=== PATIENT | female | born 1935 | race Two or more races ===

== ENCOUNTER 2017-02-24 09:35 | Outpatient (CLI) | payer OTHER ==
[~2017-02-24 09:35] MED LIST: AMBIEN10 MG; ATIVAN1 MG; CALTRATE 600600 MG; DIOVAN160 M1; KETO10TA2 PO; NEURONTIN300 MG; PRILOSEC20 MG; ULTRACET PO; ZOCOR20 MG; ZOLOFT25 MG
== END 2017-02-24 13:36 | disposition home or self-care (01) ==
LOC: MAMO-SONO 09:35
DX: C50.512 Malignant neoplasm of lower-outer quadrant of left female breast (principal)

== ENCOUNTER 2017-02-24 09:37 | Outpatient (CLI) | payer OTHER | END 2017-02-24 09:38 | disposition home or self-care (01) | LOC: LAB 09:37 | DX: I74.5 Embolism and thrombosis of iliac artery (principal) ==

== ENCOUNTER 2017-02-24 09:59 | Outpatient (CLI) | payer OTHER | END 2017-02-24 10:30 | disposition home or self-care (01) | LOC: NUCLEAR 09:59 | DX: I11.9 Hypertensive heart disease without heart failure (principal); I50.22 Chronic systolic (congestive) heart failure; I50.40 Unspecified combined systolic (congestive) and diastolic (congestive) heart failure ==

== ENCOUNTER 2017-02-24 10:07 | Outpatient (CLI) | payer OTHER | END 2017-02-24 13:36 | disposition home or self-care (01) | LOC: RAD 10:07 | DX: I11.9 Hypertensive heart disease without heart failure (principal) ==

== ENCOUNTER 2018-05-10 09:56 | Outpatient (CLI) | payer OTHER | END 2018-05-10 10:30 | disposition home or self-care (01) | LOC: NUCLEAR 09:56 | DX: M81.0 Age-related osteoporosis without current pathological fracture (principal) ==

== ENCOUNTER 2018-10-20 08:41 | Emergency (ER) | payer OTHER ==
[~2018-10-20] VITALS: Ht 152.4 cm; Wt 90.7 kg
[2018-10-20] MEDS ORDERED: DICLOFENAC SODI75 MG PO (10:49)
== END 2018-10-20 10:57 | disposition home or self-care (01) ==
LOC: ER 08:41
DX: M54.5 Low back pain (principal)

== ENCOUNTER 2019-03-21 15:01 | Emergency (ER) | payer OTHER ==
[~2019-03-21] VITALS: Ht 157.5 cm; Wt 95.3 kg
[~2019-03-21 15:01] MED LIST changes: +DICLOFENAC SODI75 MG PO
[2019-03-21] MEDS ORDERED: RESTORIL15 M1 PO (15:25)
[2019-03-21] MEDS ORDERED: HYZAAR 50-12.51 EACH PO (15:25)
[2019-03-21] MEDS ORDERED: DAFLONEX-XL 11300 MG PO (15:26)
[2019-03-21] MEDS ORDERED: APRESOLINE 10MG10 MG PO (15:26)
[2019-03-21] MEDS ORDERED: MICROZIDE12.5 MG PO (15:27)
[2019-03-21] MEDS ORDERED: POTASSIUM CHLOR8 MEQ PO (18:50)
[2019-03-21] MEDS ORDERED: NEURONTIN300 MG PO (18:53)
== END 2019-03-21 20:21 | disposition home or self-care (01) ==
LOC: ER 15:01
DX: M25.562 Pain in left knee (principal)

== ENCOUNTER 2021-05-10 08:48 | Outpatient (CLI) | payer OTHER ==
[~2021-05-10 08:48] MED LIST changes: +APRESOLINE 10MG10 MG PO; +DAFLONEX-XL 11300 MG PO; +HYZAAR 50-12.51 EACH PO; +MICROZIDE12.5 MG PO; +NEURONTIN300 MG PO; +POTASSIUM CHLOR8 MEQ PO; +RESTORIL15 M1 PO
== END 2021-05-10 08:59 | disposition home or self-care (01) ==
LOC: EKG 08:48
DX: I11.0 Hypertensive heart disease with heart failure (principal); I50.9 Heart failure, unspecified

== ENCOUNTER 2023-04-15 15:14 | Emergency (ER) | payer OTHER ==
[~2023-04-15] VITALS: Ht 157.5 cm; Wt 86.2 kg
[2023-04-15] MEDS ORDERED: 0.9 % SODIUM CHLORIDE 1,000 ML IV SCH (17:00)
[2023-04-15 17:30] LABS: HEMATOCRIT 40.1 % (36.0-45.00); HEMOGLOBIN 13.5 g/dL (12.0-15.00); MEAN CELL VOLUME 88.4 fL (80.00-100.00); MEAN CORPUSCULAR HEMOGLOBIN 29.8 pg (27.00-32.0); MEAN CORPUSCULAR HGB CONC 33.7 g/dl (32.0-36.0); PLATELET COUNT 196 K/uL (150-450); RED BLOOD COUNT 4.54 M/uL (4.00-6.00); RED CELL DISTRIBUTION WIDTH 14.3 % (11.5-14.5)
[2023-04-15 18:03] LABS: ALBUMIN 3.5 gm/dL (3.4-5.0); BILIRUBIN TOTAL 0.64 mg/dL (0.3-1.2); CALCIUM 10.2 mg/dL (8.5-10.1); CREATININE SERUM 0.88 mg/dL (0.55-1.02); GFR 60.93; GLOBULINA 2.7 G/DL (2.4-3.5); POTASSIUM 4.39 mEq/L (3.5-5.1); TOTAL PROTEIN 6.2 gm/dL (6.4-8.2)
[2023-04-15 18:06] LABS: URINE APPEARANCE Clear; URINE BILIRRUBIN Negative (NEGATIVE); URINE BLOOD Negative; URINE COLOR Yellow; URINE GLUCOSE Negative (NEGATIVE); URINE LEUKOCYTE Negative; URINE NITRATE Negative; URINE PROTEIN Negative (NEGATIVE)
[2023-04-15 18:07] LABS: URINE EPITHELIAL CELLS 7.7 uL (0.0-38.8); URINE RBC 4.8 uL (0.0-20.8); URINE WBC 4.9 uL (0.0-23.2)
== END 2023-04-15 20:11 | disposition home or self-care (01) ==
LOC: ER 15:14
PROVIDERS: General Practice
DX: S09.8XXA Other specified injuries of head, initial encounter (principal); W18.39XA Other fall on same level, initial encounter; Y93.89 Activity, other specified; Y92.013 Bedroom of single-family (private) house as the place of occurrence of the external cause; Z88.0 Allergy status to penicillin; S89.81XA Other specified injuries of right lower leg, initial encounter; Z88.6 Allergy status to analgesic agent; I10 Essential (primary) hypertension; Z20.822 Contact with and (suspected) exposure to COVID-19
CPT/HCPCS: 36415; 70450; 70486; 72125; 73560; 96365; 96366; 99284; J7030